=== PATIENT | male | born 1940 | race Caucasian/White ===

== ENCOUNTER 2016-11-29 09:51 | Inpatient (IN) | payer MEDICARE, OTHER ==
[~2016-11-29] VITALS: Ht 170.2 cm; Wt 76.3 kg
[2016-11-29] MEDS ORDERED: SOD CHLORIDE 0.9% 1,000 ML IV STA (09:55)
--- NOTE | 2016-11-29 10:25 | RADRPT ---
PROCEDURE: CT Brain without contrast. CLINICAL INDICATION: Altered mental status. TECHNIQUE: A CT of the brain without contrast was performed utilizing axial sections from the skul l base through the vertex. The patient was scanned without intravenous contrast enhancement. Sagitta l and coronal reformatted images were obtained using the data from the axial images. Total exam DLP is 720.23 mGy-cm. CTDIvol is 44.95 mGy. One or more of the following dose reduction techniques were used: Automated exposure control, adjustment of the mA and/or kV according to patient size, use of iterative reconstruction technique. COMPARISON: None available. FINDINGS: There is normal michele-white matter differentiation. There is enlargement of the ventricles and subarachnoid spaces consistent with atrophy. There is decreased attenuation of the periventricular white matter consistent with microangiopathic ischemic change. There is a large old infarct in the right temporal lobe anteriorly and right parietal lobe involving the basal ganglia with extensive encephalomalacia at this site. There is ex vacuo enlargement of th e temporal horn and right lateral ventricle. There is no evidence of recent infarct. There is no intracranial hemorrhage or space-occupying lesion. There are vascular calcifications consistent with atherosclerosis. There is no skull fracture or lytic lesion. IMPRESSION: 1. Atrophy. 2. Microangiopathic ischemic change. 3. Atherosclerosis. 4. Large old right temporal parietal infarct with extensive encephalomalacia. 5. No new infarct or intracranial hemorrhage. 6. Otherwise unremarkable noncontrast CT scan of the brain. RPTAT: QQ .Jeyson Mcgrath MD, MD Date Time Electronically viewed and signed by .Jeyson Mcgrath MD, on 11/29/2016 10:25 .R/
--- NOTE | 2016-11-29 10:37 | ERD ---
ER Documentation Chief Complaint Chief Complaint aloc,lasted few sec per ems report HPI 76-year-old man brought in by EMS from home for morning confusion. Family member states this morning he had trouble expressing himself and appeared confused and had a complaint of inability to urinate. 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 He has had no complaints of chest pain or shortness of breath, no fevers or chills, no vomiting or diarrhea. EMS state his symptoms gradually improved en route, and stay at scene his blood sugar was within normal limits. ROS All systems reviewed and are negative except as per history of present illness. Medications Home Meds Reported Medications Alprazolam* (Alprazolam*) 0.5 Mg Tablet, 0.5 MG PO DAILY Y for ANXIETY, TAB 11/29/16 Benazepril Hcl* (Benazepril Hcl*) 20 Mg Tablet, 20 MG PO DAILY, #30 TAB 11/29/16 Metformin Hcl* (Metformin Hcl*) 500 Mg Tablet, 500 MG PO WITH BREAKFAST DINNE, # 60 TAB 11/29/16 Glipizide* (Glipizide*) 5 Mg Tablet, 5 MG PO AC BREAKFAST DINNER, TAB 11/29/16 Ibuprofen* (Ibuprofen*) 600 Mg Tablet, 600 MG PO BID Y for PAIN, TAB 11/29/16 Paroxetine Hcl* (Paroxetine*) 20 Mg Tablet, 20 MG PO DAILY, TAB 11/29/16 Doxazosin Mesylate* (Doxazosin Mesylate*) 4 Mg Tablet, 4 MG PO HS, TAB 11/29/16 Simvastatin* (Zocor*) 20 Mg Tablet, 20 MG PO QHS, #30 TAB 11/29/16 Aspirin* (Aspirin* EC) 81 Mg Tablet.dr, 81 MG PO DAILY, TAB 11/29/16 Furosemide* (Furosemide*) 40 Mg Tablet, 40 MG PO DAILY, TAB 11/29/16 Thiamine* (Thiamine*) 100 Mg Tablet, 100 MG PO DAILY, TAB 11/29/16 Metoprolol Succinate* (Toprol XL*) 50 Mg Tab.er.24h, 50 MG PO DAILY, #30 TAB 11/29/16 Amiodarone Hcl* (Amiodarone Hcl*) 200 Mg Tablet, 200 MG PO DAILY, #30 TAB 11/29/16 Omeprazole* (Omeprazole*) 20 Mg Capsule.dr, 20 MG PO DAILY, #30 CAP 11/29/16 Discontinued Reported Medications Benazepril Hcl* (Benazepril Hcl*) 10 Mg Tablet, 10 MG PO DAILY, #30 TAB 11/29/16 Allergies Allergies: Coded Allergies: No Known Allergy (Unverified , 11/29/16) PMhx/Soc 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 No submandibular induration, and no pharyngeal erythema NEURO: Alert and oriented 2, facial asymmetry with left facial deficit and left upper and lower extremity paresis consistent with his old stroke, pupils equal round reactive to light, no expressive dysarthria noted, able to answer all my questions, patient is able to read without difficulty CARDIAC: Regular rate and rhythm, no murmurs rubs or gallops LUNGS: Clear bilaterally no wheezing crackles or stridor ABDOMEN: Soft nontender, no guarding, no rigidity, no rebound, no psoas sign no obturator sign. Normoactive bowel sounds SKIN: Warm and dry to touch, no abrasions, contusions, or hematomas, no lacerations, no ecchymosis, no target lesions, and without ulcers EXTREMITIES: No clubbing cyanosis or edema, calves are bilaterally symmetrical, no Homans sign, no popliteal cord sign. Distal pulses equal and bilateral PSYCH: Normal affect without agitation or irritability Result Diagram: 11/29/16 1008 11/29/16 1008 Results 24 hrs Laboratory Tests Test 11/29/16 10:08 11/29/16 10:54 White Blood Count 8.610^3/ul Red Blood Count 4.0810^6/ul Hemoglobin 12.2g/dl Hematocrit 36.1% Mean Corpuscular Volume 88.5fl Mean Corpuscular Hemoglobin 29.9pg Mean Corpuscular Hemoglobin Concent 33.8g/dl Red Cell Distribution Width 14.1% Platelet Count 46344^3/UL Mean Platelet Volume 10.5fl Neutrophils % 82.6% Lymphocytes % 10.2% Monocytes % 5.4% Eosinophils % 0.9% Basophils % 0.2% Nucleated Red Blood Cells % 0.0/100WBC Neutrophils # 7.110^3/ul Lymphocytes # 0.910^3/ul Monocytes # 0.510^3/ul Eosinophils # 0.110^3/ul Basophils # 0.010^3/ul Nucleated Red Blood Cells # 0.010^3/ul Sodium Level 140mmol/L Potassium Level 4.8mmol/L Chloride Level 105mmol/L Carbon Dioxide Level 19mmol/L Anion Gap 21 Blood Urea Nitrogen 125mg/dl Creatinine 5.74mg/dl Glucose Level mg/dl Calcium Level 9.2mg/dl Total Bilirubin 0.0mg/dl Direct Bilirubin 0.00mg/dl Indirect Bilirubin 0.0mg/dl Aspartate Amino Transf (AST/SGOT) 26IU/L Alanine Aminotransferase (ALT/SGPT) 59IU/L Alkaline Phosphatase 73IU/L Troponin I < 0.012ng/ml Total Protein 7.8g/dl Albumin 3.8g/dl Globulin 4.00g/dl Albumin/Globulin Ratio 0.95 Lipase 156U/L Bedside Glucose 33mg/dL Current Medications Medications (Trade) Dose Ordered Sig/Jacob Route PRN Reason Start Time Stop Time Status Last Admin Dose Admin Sodium Chloride (NS) 1,000 ml @ 1,000 mls/hr Q1H STAT IV 11/29/16 09:55 11/29/16 10:54 DC 11/29/16 10:43 Dextrose (D50w Syringe) 50 ml STK-MED ONCE .ROUTE 11/29/16 10:54 11/29/16 10:55 DC Dextrose (D50w Syringe) 50 ml ONCE STAT IV 11/29/16 11:15 11/29/16 11:17 DC 11/29/16 10:55 Procedures/MDM IV line was established patient was placed on monitoring coordinator rhythm strip revealed a sinus bradycardia at about 60 bpm with upright P and T waves. Patient was afebrile. EKG performed, read by me: 63 bpm, normal sinus rhythm, normal axis, no acute ST segment changes, narrow QRS complex, with good R-wave progression in precordial leads. CT scan of the brain was performed revealing chronic right parietal encephalomalacia consistent with chronic hemorrhagic infarct, no acute bleed mass or shift noted. Please refer to radiologist dictation for full report. Chest X-ray 1V Interpreted by me: Soft Tissue: No acute abnormalities Bones: No acute abnormalities Mediastinum/Cardiac Silhouette/Lungs: Atelectatic changes bilaterally traits. I administered 1 L normal saline intravenously for dehydration, blood sugar was rechecked and was low, I ordered juice p.o. and dextrose 25 g IV 1. Patient's mental status remains at baseline. CBC is normal, electrolytes revealed dehydration and kidney injury with a BUN/ creatinine of 125/5.7, liver function tests normal, troponin negative. Urine analysis was also been ordered results are pending I will follow-up, if positive he will be treated with IV antibiotics. Patient is not a TPA candidate given his history of hemorrhagic stroke, although he was treated here with low-dose aspirin therapy for neuro protective measures, although I suspect his symptoms were due to a.m. hypoglycemia. Daughter who was later at the bedside state he did not have much to eat last night. Patient admitted to telemetry setting. Departure Diagnosis: Primary Impression: Acute metabolic encephalopathy due to hypoglycemia Additional Impressions: Dehydration Acute renal failure Acute renal failure type: unspecified Qualified Code: N17.9 - Acute renal failure, unspecified acute renal failure type Condition: VIRY Raman MD Nov 29, 2016 10:37
--- NOTE | 2016-11-29 10:41 | RADRPT ---
PROCEDURE: XR Chest. CLINICAL INDICATION: Abdominal pain. TECHNIQUE: Single frontal view. COMPARISON: None. FINDINGS: The lungs are clear. The heart size is normal. There is calcification in the aorta consistent with atherosclerosis. There is no pleural effusion. There is no pneumothorax. Surgical clips are present in the right upper quadrant of the abdomen. IMPRESSION: 1. Atherosclerosis. 2. Clear lungs. 3. Prior right upper quadrant abdomen surgery. RPTAT: QQ .Jeyson Mcgrath MD, MD Date Time Electronically viewed and signed by .Jeyson Mcgrath MD, MD on 11/29/2016 10:41 .R/
[2016-11-29 10:47] LABS: ALANINE AMINOTRANSFERASE 59 IU/L (13-69); ALBUMIN 3.8 g/dl (3.3-4.9); ALBUMIN/GLOBULIN RATIO 0.95; ALKALINE PHOSPHATASE 73 IU/L (42-121); ANION GAP 21 (8-16); ASPARTATE AMINO TRANSFERASE 26 IU/L (15-46); CALCIUM 9.2 mg/dl (8.4-10.2); CARBON DIOXIDE 19 mmol/L (21-31); CHLORIDE 105 mmol/L (97-110); CREATININE 5.74 mg/dl (0.61-1.24); POTASSIUM 4.8 mmol/L (3.5-5.1); SODIUM 140 mmol/L (135-144); TOTAL PROTEIN 7.8 g/dl (6.1-8.1)
[2016-11-29 10:48] LABS: BASOPHILS % 0.2 % (0.0-2.0); EOSINOPHILS # 0.1 10^3/ul (0.0-0.5); EOSINOPHILS % 0.9 % (0.0-7.0); HEMATOCRIT 36.1 % (42.0-52.0); HEMOGLOBIN 12.2 g/dl (14.0-18.0); LYMPHOCYTES # 0.9 10^3/ul (0.8-2.9); LYMPHOCYTES % 10.2 % (15.0-51.0); MEAN CORPUSCULAR HEMOGLOBIN 29.9 pg (29.0-33.0); MEAN CORPUSCULAR HGB CONC 33.8 g/dl (32.0-37.0); MEAN CORPUSCULAR VOLUME 88.5 fl (82.0-101.0); MEAN PLATELET VOLUME 10.5 fl (7.4-10.4); MONOCYTE # 0.5 10^3/ul (0.3-0.9); MONOCYTES % 5.4 % (0.0-11.0); NEUTROPHIL # 7.1 10^3/ul (1.6-7.5); NEUTROPHILS % 82.6 % (39.0-77.0); PLATELET COUNT 317 10^3/UL (140-415); RED BLOOD COUNT 4.08 10^6/ul (4.70-6.10); RED CELL DISTRIBUTION WIDTH 14.1 % (11.5-14.5); WHITE BLOOD COUNT 8.6 10^3/ul (4.8-10.8)
[2016-11-29] MEDS ORDERED: DEXTROSE 50% 50 ML SYRINGE ONE (10:54)
[2016-11-29 10:58] LABS: BLOOD UREA NITROGEN 125 mg/dl (7-20)
[2016-11-29] MEDS ORDERED: OMEP20CA16 PO (11:02)
[2016-11-29] MEDS ORDERED: AMIO200T2 PO (11:03)
[2016-11-29] MEDS ORDERED: FURO40TA4 PO (11:04)
[2016-11-29] MEDS ORDERED: METO-319 PO (11:04)
[2016-11-29] MEDS ORDERED: THIA100T10 PO (11:04)
[2016-11-29] MEDS ORDERED: SIMV20TA PO (11:05)
[2016-11-29] MEDS ORDERED: ASPI-664 PO (11:05)
[2016-11-29 11:06] LABS: TROPONIN-I < 0.012 ng/ml (0.00-0.12)
[2016-11-29] MEDS ORDERED: DOXA4TAB3 PO (11:06)
[2016-11-29] MEDS ORDERED: PARO-37 PO (11:06)
[2016-11-29] MEDS ORDERED: BENA10TA48 PO (11:06)
[2016-11-29] MEDS ORDERED: GLIP5TAB13 PO (11:07)
[2016-11-29] MEDS ORDERED: IBUP-1542 PO (11:07)
[2016-11-29] MEDS ORDERED: METF500T4 PO (11:08)
[2016-11-29] MEDS ORDERED: BENA20TA48 PO (11:11)
[2016-11-29] MEDS ORDERED: ALPR0.5T6 PO (11:12)
[2016-11-29] MEDS ORDERED: DEXTROSE 50% 50 ML SYRINGE IV STA (11:15)
[2016-11-29] MEDS ORDERED: ASPIRIN 81 MG TAB PO ONE (12:00)
[2016-11-29 12:31] LABS: ADD UMIC YES; UR ASCORBIC ACID NEGATIVE (NEGATIVE); UR BACTERIA FEW /HPF (NONE SEEN); UR BILIRUBIN (Dip) NEGATIVE (NEGATIVE); UR BLOOD (Dip) 1+ mg/dL (NEGATIVE); UR CLARITY SLIGHTLY CLOUDY (CLEAR); UR COLOR YELLOW (YELLOW); UR GLUCOSE (Dip) NEGATIVE (NEGATIVE); UR KETONES (Dip) NEGATIVE (NEGATIVE); UR LEUKOCYTE ESTERASE (Dip) 3+ Leu/ul (NEGATIVE); UR MUCUS FEW /HPF (NONE SEEN); UR NITRITE (Dip) NEGATIVE (NEGATIVE); UR RBC 3 /HPF (0-5); UR SPECIFIC GRAVITY (Dip) 1.016 (1.003-1.030); UR TOTAL PROTEIN (Dip) 1+ mg/dl (NEGATIVE); UR UROBILINOGEN (Dip) NEGATIVE (NEGATIVE)
[2016-11-29] MEDS ORDERED: ACETAMINOPHEN 325 MG TAB PO PRN (13:00)
[2016-11-29] MEDS ORDERED: ONDANSETRON 4 MG TAB PO PRN (13:00)
[2016-11-29] MEDS ORDERED: NACL 0.9% 3 ML SYG IV SCH (13:00)
--- NOTE | 2016-11-29 13:26 | HP ---
Date/Time of Note Date/Time of Note DATE: 11/29/16 TIME: 13:18 Assessment/Plan VTE Prophylaxis VTE Prophylaxis Intervention: SCD's Lines/Catheters Urinary Cath still in place: Yes Reason Cath still needed: urinary retention Assessment/Plan Assessment/Plan 76 yo M brought in for AMS, found to have acute metabolic encephalopathy from hypoglycemia, now resolved, as well as CHRISTINE 2/2 AUR requiring plascencia placement PLAN #hypoglycemia: likely from CHRISTINE/decreased clearance of home meds -hold metformin and SFU #CHRISTINE: postrenal most likely given AUR. -check VAUGHN -cont plascencia -max out dose of home doxazosin -check urine lytes -check urine culture -no acei/arb/nsaids #h/o CVA: cont home BP meds and statin possibly dc in AM pending Cr HPI/ROS Admit Date/Time Admit Date/Time Hx of Present Illness CC he wasn't himself but now he's better HPI 76 yo M with pmhx CVA, DM2, no CKD brought in by family for seeming unwell this AM. Pt found to be hypoglycemic and with AUR. Plascencia placed in the ER. Family reports pt has been eating and drinking normally over the past few days. Last time pt had a plascencia was when he was hospitalized for his stroke. 10pROS as per HPI PMH/Family/Social Social History lives in the community with his family Smoking Status: Former smoker Exam/Review of Systems Vital Signs Vitals Vital Signs Date Time Temp Pulse Resp B/P Pulse Ox O2 Delivery O2 Flow Rate FiO2 11/29/16 10:01 97.8 69 18 121/69 99 Exam Exam nad, sitting up in bed EOMI MMM no mrg lungs clear abd soft no rashes plascencia in place draining yellow urine labs reviewed, Cr 6s. no previous Cr on file Labs Result Diagram: 11/29/16 1008 11/29/16 1008 ANDREA BECKER MD Nov 29, 2016 13:26
[2016-11-29] MEDS ORDERED: DEXTROSE 5%-0.9% NACL 1,000 ML IV SCH ×2 (13:30)
--- NOTE | 2016-11-29 14:07 | RADRPT ---
PROCEDURE: Renal US. CLINICAL INDICATION: Acute kidney injury TECHNIQUE: Multiple sonographic images of the kidneys were obtained. The images were reviewed on a PACS workstation. COMPARISON: No prior studies are available for comparison. FINDINGS: The kidneys are well visualized. The right kidney measures 10.4 cm. The left kidney measures 10.6 cm .. There are nonobstructing intrarenal calculi in the central mid left kidney measuring 5 and 7 mm r espectively. The bladder is decompressed with a Ugarte catheter. There is a small amount of debris se en within the urinary bladder. IMPRESSION: 1. No evidence of hydronephrosis. 2. Nonobstructing intrarenal calculi in the central mid left kidney measuring 5 and 7 mm respective ly. 3. The bladder is decompressed with a Ugarte catheter and contains a small amount of debris. RPTAT:AAJJ Physician Tiff Date Time Electronically viewed and signed by Physician Tiff on 11/29/2016 14:07 PANFILO/
[2016-11-29] MEDS ORDERED: GLUCOSE GEL 15 GRAM TUBE PO PRN ×2 (15:00)
[2016-11-29] MEDS ORDERED: GLUCAGON 1 MG INJ IM PRN (15:00)
[2016-11-29] MEDS ORDERED: GLUCOSE GEL 15 GRAM TUBE BUCCAL PRN (15:00)
[2016-11-29] MEDS ORDERED: DEXTROSE 50% 50 ML SYRINGE IV PRN ×2 (15:00)
[2016-11-29] MEDS: INSULIN ASPART [NOVOLOG] 3 ML PEN SC SCH ×2 (18:00→20:22)
[2016-11-29 18:17] VITALS: PULSE 99
[2016-11-29 18:20] VITALS: BP 150/96; RESP 18
[2016-11-29 19:57] VITALS: BP 146/61; RESP 20
[2016-11-29 20:10] VITALS: PULSE 96
[2016-11-29] MEDS: ATORVASTATIN 10 MG TAB PO SCH (20:24)
[2016-11-29] MEDS: AMIODARONE 200 MG TAB PO SCH (20:25)
[2016-11-29] MEDS: METOPROLOL (XL) 50 MG TAB PO SCH (20:25)
[2016-11-29 20:53] VITALS: Ht 170.2 cm; Wt 76.3 kg
[2016-11-29] MEDS ORDERED: DOXAZOSIN 4 MG TAB PO SCH (21:00)
[2016-11-29] MEDS: PAROXETINE 20 MG TAB PO SCH (23:30)
[2016-11-29] MEDS: THIAMINE 100 MG TAB PO SCH (23:30)
[2016-11-29] MEDS: DOXAZOSIN 4 MG TAB PO SCH (23:41)
[2016-11-29 23:48] VITALS: BP 114/58; RESP 19
[2016-11-30] VITALS (13 sets, daily range): BP systolic 64–107; BP diastolic 41–62; PULSE 70–97; RESP 18–21
[2016-11-30] MEDS: ACCU-CHEK XX SCH (02:55)
[2016-11-30] MEDS: INSULIN ASPART [NOVOLOG] 3 ML PEN SC SCH ×4 (07:43→22:36)
[2016-11-30 08:33] LABS: BASOPHILS % 0.4 % (0.0-2.0); EOSINOPHILS # 0.2 10^3/ul (0.0-0.5); EOSINOPHILS % 2.8 % (0.0-7.0); HEMATOCRIT 33.4 % (42.0-52.0); HEMOGLOBIN 11.2 g/dl (14.0-18.0); LYMPHOCYTES # 1.3 10^3/ul (0.8-2.9); LYMPHOCYTES % 17.3 % (15.0-51.0); MEAN CORPUSCULAR HEMOGLOBIN 29.2 pg (29.0-33.0); MEAN CORPUSCULAR HGB CONC 33.5 g/dl (32.0-37.0); MEAN CORPUSCULAR VOLUME 87.2 fl (82.0-101.0); MEAN PLATELET VOLUME 10.5 fl (7.4-10.4); MONOCYTE # 0.7 10^3/ul (0.3-0.9); MONOCYTES % 9.2 % (0.0-11.0); NEUTROPHIL # 5.2 10^3/ul (1.6-7.5); NEUTROPHILS % 69.5 % (39.0-77.0); PLATELET COUNT 312 10^3/UL (140-415); RED BLOOD COUNT 3.83 10^6/ul (4.70-6.10); WHITE BLOOD COUNT 7.4 10^3/ul (4.8-10.8)
[2016-11-30] MEDS: THIAMINE 100 MG TAB PO SCH (08:48)
[2016-11-30] MEDS: PAROXETINE 20 MG TAB PO SCH (08:57)
[2016-11-30] MEDS: ASPIRIN (EC) 81 MG TAB PO SCH (08:57)
[2016-11-30] MEDS: ENOXAPARIN 30 MG/0.3 ML SYG SC SCH (08:58)
[2016-11-30] MEDS: METOPROLOL (XL) 50 MG TAB PO SCH (09:00)
[2016-11-30 09:01] LABS: CALCIUM 9.1 mg/dl (8.4-10.2); CREATININE 3.56 mg/dl (0.61-1.24); POTASSIUM 4.6 mmol/L (3.5-5.1)
[2016-11-30] MEDS ORDERED: SOD CHLORIDE 0.9% 1,000 ML IV ONE (09:30)
[2016-11-30] MEDS: AMIODARONE 200 MG TAB PO SCH (11:37)
--- NOTE | 2016-11-30 14:07 | PN ---
Date/Time of Note Date/Time of Note DATE: 11/30/16 TIME: 14:03 Assessment/Plan VTE Prophylaxis VTE Prophylaxis Intervention: SCD's Lines/Catheters IV Catheter Type (from Nrsg): Saline Lock Urinary Cath still in place: Yes Reason Cath still needed: urinary retention Assessment/Plan Assessment/Plan 76 yo M brought in for AMS, found to have acute metabolic encephalopathy from hypoglycemia, as well as CHRISTINE 2/2 AUR requiring plascencia placement PLAN #hypoglycemia: RESOLVED -likely from CHRISTINE/decreased clearance of home meds -hold metformin and SFU #CHRISTINE: postrenal most likely given AUR. -cont plascencia -maxed out dose of home doxazosin -VAUGHN with just non obstructing kidney stone -urine culture ng thus far -no acei/arb/nsaids -judicious IVFs as unclear if pt has underlying CHF hx, appears to be on CHF regimen based on home meds #h/o CVA: cont statin. hold BP meds given hypotension this AM awaiting further improvement in Cr Exam/Review of Systems Vital Signs Vitals Vital Signs Date Time Temp Pulse Resp B/P Pulse Ox O2 Delivery O2 Flow Rate FiO2 11/30/16 12:31 98.7 82 18 96/54 97 11/29/16 16:23 Room Air Intake and Output 11/29/16 11/29/16 11/30/16 15:00 23:00 07:00 Intake Total 160 ml 120 ml Output Total 3000 ml Balance 160 ml -2880 ml Results Result Diagram: 11/30/16 0809 11/30/16 0809 Results 24 hrs Laboratory Tests Test 11/29/16 17:07 11/29/16 18:41 11/29/16 20:22 11/30/16 02:55 Bedside Glucose 100 72 101 98 Test 11/30/16 07:42 11/30/16 08:09 11/30/16 11:31 Bedside Glucose 137 209 White Blood Count 7.4 Red Blood Count 3.83 L Hemoglobin 11.2 L Hematocrit 33.4 L Mean Corpuscular Volume 87.2 Mean Corpuscular Hemoglobin 29.2 Mean Corpuscular Hemoglobin Concent 33.5 Red Cell Distribution Width 14.0 Platelet Count 312 Mean Platelet Volume 10.5 H Neutrophils % 69.5 Lymphocytes % 17.3 Monocytes % 9.2 Eosinophils % 2.8 Basophils % 0.4 Nucleated Red Blood Cells % 0.0 Neutrophils # 5.2 Lymphocytes # 1.3 Monocytes # 0.7 Eosinophils # 0.2 Basophils # 0.0 Nucleated Red Blood Cells # 0.0 Sodium Level 142 Potassium Level 4.6 Chloride Level 113 H Carbon Dioxide Level 18 L Anion Gap 16 Blood Urea Nitrogen 99 H Creatinine 3.56 #H Glucose Level 124 Calcium Level 9.1 Medications Medications Current Medications Amiodarone HCl (Cordarone) 200 mg DAILY PO Last administered on 11/29/16 20: 25; Admin Dose 200 MG; Start 11/29/16 at 17:30 Aspirin (Halfprin) 81 mg DAILY PO Last administered on 11/30/16 08:57; Admin Dose 81 MG; Start 11/30/16 at 09:00 Paroxetine HCl (Paxil) 20 mg DAILY PO Last administered on 11/30/16 08:57; Admin Dose 20 MG; Start 11/29/16 at 17:30 Thiamine HCl (Vitamin B1) 100 mg DAILY PO Last administered on 11/30/16 08:48 ; Admin Dose 100 MG; Start 11/29/16 at 17:30 Atorvastatin Calcium (Lipitor) 10 mg DAILY@21 PO Last administered on 20:24; Admin Dose 10 MG; Start 11/29/16 at 21:00 Ondansetron HCl (Zofran Tab) 4 mg Q6H PRN PO NAUSEA AND/OR VOMITING; Start at 13:00 Acetaminophen (Tylenol Tab) 650 mg Q6H PRN PO PAIN LEVEL 1-3 OR FEVER Last administered on 11/29/16 23:34; Admin Dose 650 MG; Start 11/29/16 at 13:00 Acetaminophen/ Hydrocodone Bitart ([place] (5/325)) 1 tab Q6H PRN PO MODERATE PAIN LEVEL 4-6; Start 11/29/16 at 13:00 Morphine Sulfate (morphine) 2 mg Q4H PRN IV SEVERE PAIN LEVEL 7-10; Start at 13:00 Enoxaparin Sodium (Lovenox) 30 mg DAILY SC Last administered on 11/30/16 08: 58; Admin Dose 30 MG; Start 11/30/16 at 09:00 Diagnostic Test (Pha) (Accu-Chek) 1 ea 02 XX Last administered on 11/30/16 02 :55; Admin Dose 1 EA; Start 11/30/16 at 02:00 Doxazosin Mesylate (Cardura) 8 mg HS PO Last administered on 11/29/16t 23:41; Admin Dose 8 MG; Start 11/29/16 at 21:00 Miscellaneous Information 1 ea NOTE XX ; Start 11/29/16 at 15:00 Glucose (Glutose) 15 gm Q15M PRN PO DECREASED GLUCOSE; Start 11/29/16 at 15:00 Glucose (Glutose) 22.5 gm Q15M PRN PO DECREASED GLUCOSE; Start 11/29/16 at 15: 00 Dextrose (D50w Syringe) 25 ml Q15M PRN IV DECREASED GLUCOSE; Start 11/29/16 at 15:00 Dextrose (D50w Syringe) 50 ml Q15M PRN IV DECREASED GLUCOSE; Start 11/29/16 at 15:00 Glucagon (Glucagen) 1 mg Q15M PRN IM DECREASED GLUCOSE; Start 11/29/16 at 15: 00 Glucose (Glutose) 15 gm Q15M PRN BUCCAL DECREASED GLUCOSE; Start 11/29/16 at 15:00 ANDREA BECKER MD Nov 30, 2016 14:07
[2016-11-30] MEDS ORDERED: SOD CHLORIDE 0.9% 1,000 ML IV SCH (14:30)
--- NOTE | 2016-11-30 16:41 | RADRPT ---
Vent Rate: 73 bpm RR Interval: 0 msec AL Interval: 192 msec QRS Duration: 86 msec QT Interval: 412 msec QTC Interval: 453 msec P-R-T [place]: 40 - -47 - 53 degrees Normal sinus rhythm with sinus arrhythmia Left axis deviation Abnormal ECG Electronically Signed By: Klaus Johnson [id number]
[2016-11-30] MEDS: ATORVASTATIN 10 MG TAB PO SCH (22:30)
[2016-11-30] MEDS: DOXAZOSIN 4 MG TAB PO SCH (22:37)
[2016-12-01] VITALS (11 sets, daily range): BP systolic 102–148; BP diastolic 60–73; PULSE 75–103; RESP 20
[2016-12-01] MEDS: ACCU-CHEK XX SCH (02:25)
[2016-12-01] MEDS: THIAMINE 100 MG TAB PO SCH (08:51)
[2016-12-01] MEDS: ASPIRIN (EC) 81 MG TAB PO SCH (08:51)
[2016-12-01] MEDS: AMIODARONE 200 MG TAB PO SCH (08:52)
[2016-12-01] MEDS: PAROXETINE 20 MG TAB PO SCH (08:52)
[2016-12-01] MEDS: INSULIN ASPART [NOVOLOG] 3 ML PEN SC SCH ×4 (08:53→21:04)
[2016-12-01] MEDS: ENOXAPARIN 30 MG/0.3 ML SYG SC SCH (08:54)
[2016-12-01] MEDS: morphine 2 MG INJ IV PRN (09:04)
[2016-12-01 09:16] LABS: CALCIUM 9.1 mg/dl (8.4-10.2); CREATININE 2.23 mg/dl (0.61-1.24); MAGNESIUM 1.3 mg/dl (1.7-2.5); POTASSIUM 4.2 mmol/L (3.5-5.1)
[2016-12-01] MEDS ORDERED: SOD CHLORIDE 0.45% 1,000 ML IV SCH (13:00)
[2016-12-01] MEDS ORDERED: MAGNESIUM SULFATE 2 GM/50 ML 50 ML IVPB SCH (13:00)
[2016-12-01] MEDS ORDERED: SOD CHLORIDE 0.9% 1,000 ML IV SCH (13:00)
--- NOTE | 2016-12-01 15:23 | PN ---
Date/Time of Note Date/Time of Note DATE: 12/01/16 TIME: 15:20 Assessment/Plan VTE Prophylaxis VTE Prophylaxis Intervention: SCD's Lines/Catheters IV Catheter Type (from Nrsg): Peripheral IV Urinary Cath still in place: Yes Reason Cath still needed: urinary retention Assessment/Plan Chief Complaint/Hosp Course Assessment/Plan: 76 yo M brought in for AMS, found to have acute metabolic encephalopathy from hypoglycemia, as well as CHRISTINE 2/2 AUR requiring plascencia placement 1. hypoglycemia: RESOLVED - likely from CHRISTINE/decreased clearance of home meds Continue to hold metformin and SFU 2 CHRISTINE: postrenal most likely given AUR.-VAUGHN with just non obstructing kidney stone -cont plascencia -maxed out dose of home doxazosin An antibiotic for simple UTI as culture is negative -no acei/arb/nsaids -judicious IVFs as unclear if pt has underlying CHF hx, appears to be on CHF regimen based on home meds 3. h/o CVA: cont statin-monitor for now Problems: Subjective 24 Hr Interval Summary Free Text/Dictation Patient asking when he can go home. No acute events overnight. Exam/Review of Systems Vital Signs Vitals Vital Signs Date Time Temp Pulse Resp B/P Pulse Ox O2 Delivery O2 Flow Rate FiO2 12/01/16 12:00 101 12/01/16 11:57 98.3 20 117/63 95 11/29/16 16:23 Room Air Intake and Output 11/30/16 11/30/16 12/01/16 15:00 23:00 07:00 Intake Total 1920 ml 505 ml Output Total 1000 ml 1900 ml Balance 920 ml -1395 ml Exam nad, lying in bed EOMI MMM no mrg lungs clear abd soft no rashes plascencia in place draining yellow urine Results Result Diagram: 11/30/16 0809 12/01/16 0800 Results 24 hrs Laboratory Tests Test 11/30/16 17:22 11/30/16 22:34 12/01/16 02:24 12/01/16 08:00 Bedside Glucose 185 204 200 Sodium Level 147 H Potassium Level 4.2 Chloride Level 117 H Carbon Dioxide Level 19 L Anion Gap 15 Blood Urea Nitrogen 72 H Creatinine 2.23 #H Glucose Level 153 Calcium Level 9.1 Magnesium Level 1.3 L Test 12/01/16 08:16 12/01/16 12:01 Bedside Glucose 166 208 Medications Medications Current Medications Amiodarone HCl (Cordarone) 200 mg DAILY PO Last administered on 12/01/16 08: 52; Admin Dose 200 MG; Start 11/29/16 at 17:30 Aspirin (Halfprin) 81 mg DAILY PO Last administered on 12/01/16 08:51; Admin Dose 81 MG; Start 11/30/16 at 09:00 Paroxetine HCl (Paxil) 20 mg DAILY PO Last administered on 12/01/16 08:52; Admin Dose 20 MG; Start 11/29/16 at 17:30 Thiamine HCl (Vitamin B1) 100 mg DAILY PO Last administered on 12/01/16 08:51 ; Admin Dose 100 MG; Start 11/29/16 at 17:30 Atorvastatin Calcium (Lipitor) 10 mg DAILY@21 PO Last administered on 22:30; Admin Dose 10 MG; Start 11/29/16 at 21:00 Ondansetron HCl (Zofran Tab) 4 mg Q6H PRN PO NAUSEA AND/OR VOMITING Last administered on 11/30/16 17:30; Admin Dose 4 MG; Start 11/29/16 at 13:00 Acetaminophen (Tylenol Tab) 650 mg Q6H PRN PO PAIN LEVEL 1-3 OR FEVER Last administered on 11/29/16 23:34; Admin Dose 650 MG; Start 11/29/16 at 13:00 Acetaminophen/ Hydrocodone Bitart ([place] (5/325)) 1 tab Q6H PRN PO MODERATE PAIN LEVEL 4-6; Start 11/29/16 at 13:00 Morphine Sulfate (morphine) 2 mg Q4H PRN IV SEVERE PAIN LEVEL 7-10 Last administered on 12/01/16 09:04; Admin Dose 2 MG; Start 11/29/16 at 13:00 Diagnostic Test (Pha) (Accu-Chek) 1 ea 02 XX Last administered on 12/01/16 02 :25; Admin Dose 1 EA; Start 11/30/16 at 02:00 Doxazosin Mesylate (Cardura) 8 mg HS PO Last administered on 11/29/16 23:41; Admin Dose 8 MG; Start 11/29/16 at 21:00 Miscellaneous Information 1 ea NOTE XX ; Start 11/29/16 at 15:00 Glucose (Glutose) 15 gm Q15M PRN PO DECREASED GLUCOSE; Start 11/29/16 at 15:00 Glucose (Glutose) 22.5 gm Q15M PRN PO DECREASED GLUCOSE; Start 11/29/16 at 15: 00 Dextrose (D50w Syringe) 25 ml Q15M PRN IV DECREASED GLUCOSE; Start 11/29/16 at 15:00 Dextrose (D50w Syringe) 50 ml Q15M PRN IV DECREASED GLUCOSE; Start 11/29/16 at 15:00 Glucagon (Glucagen) 1 mg Q15M PRN IM DECREASED GLUCOSE; Start 11/29/16 at 15: 00 Glucose 15 gm 15 gm Q15M PRN BUCCAL DECREASED GLUCOSE; Start 11/29/16 at 15:00 Sodium Chloride (1/2 NS) 1,000 ml @ 125 mls/hr Q8H IV Last administered on t 13:47; Admin Dose 125 MLS/HR; Start 12/01/16 at 13:00 Ciprofloxacin (Cipro) 250 mg BID@06,18 PO ; Start 12/01/16 at 16:00 WALLACE BROWN Dec 01, 2016 15:23
[2016-12-01] MEDS: CIPROFLOXACIN 250 MG TAB PO SCH (17:00)
[2016-12-01] MEDS: ATORVASTATIN 10 MG TAB PO SCH (20:58)
[2016-12-01] MEDS: HYDROCODONE/APAP (5/325) TAB PO PRN (20:59)
[2016-12-01] MEDS: DOXAZOSIN 4 MG TAB PO SCH (21:00)
[2016-12-02] VITALS (10 sets, daily range): BP systolic 89–178; BP diastolic 52–83; PULSE 82–104; RESP 17–20
[2016-12-02] MEDS: ACCU-CHEK XX SCH (02:00)
[2016-12-02] MEDS: CIPROFLOXACIN 250 MG TAB PO SCH (06:30)
[2016-12-02] MEDS: AMIODARONE 200 MG TAB PO SCH (07:52)
[2016-12-02] MEDS: PAROXETINE 20 MG TAB PO SCH (07:52)
[2016-12-02] MEDS: morphine 2 MG INJ IV PRN (07:52)
[2016-12-02] MEDS: THIAMINE 100 MG TAB PO SCH (07:53)
[2016-12-02] MEDS: ASPIRIN (EC) 81 MG TAB PO SCH (07:53)
[2016-12-02] MEDS: INSULIN ASPART [NOVOLOG] 3 ML PEN SC SCH ×2 (07:59→11:43)
[2016-12-02] MEDS: HYDROCODONE/APAP (5/325) TAB PO PRN (11:53)
--- NOTE | 2016-12-02 13:55 | PDOCDIS ---
Discharge Instructions CONDITION Patient Condition: Stable HOME CARE INSTRUCTIONS: Special Diet: dx aloc, hypoglycemia ACTIVITY: Activity Restrictions: Slowly Increase Activity FOLLOW UP/APPOINTMENTS Follow-up Plan Please take your medications as prescribed, please follow-up with your regular doctor in the clinic in the next 1 week. WALLACE BROWN Dec 02, 2016 13:55
[2016-12-02] MEDS ORDERED: CIPR-193 PO (13:57)
--- NOTE | 2016-12-02 16:22 | DS ---
DATE OF ADMISSION: 11/29/2016 DATE OF DISCHARGE: 12/02/2016 HISTORY OF PRESENT ILLNESS: This is a 76-year-old male, originally admitted on November 29, 2016, being discharged home on December 02, 2016. Patient came in with altered mental status. He was found to have acute metabolic encephalopathy, likely from a combination of hypoglycemia and also from acute renal insufficiency. So he was admitted. He was a given cautious IV fluids. His creatinine levels improved. He was also given magnesium repletion. His hypoglycemia symptoms resolved as we held his home metformin medications. As his kidney function got better, his sugar stabilized. Eventually, he was back at his baseline status. He does have a history of prior stroke, so he is not able to ambulate, but at his baseline status, his vital signs are stable. He was tolerating p.o. diet. He will be discharged home today in improved condition. He was also found with a simple UTI. DISCHARGE MEDICATIONS: He will be sent with the following medications: 1. Cipro 250 mg p.o. b.i.d. for 5 days. 2. Alprazolam 0.5 mg p.o. daily p.r.n. 3. Amiodarone 200 mg daily. 4. Aspirin 81 mg daily. 5. Benazepril 20 mg daily. 6. Doxazosin 4 mg at bedtime. 7. Furosemide 40 mg daily. 8. Glipizide 5 mg twice a day. 9. Ibuprofen 600 mg b.i.d. p.r.n. 10. Metformin 500 mg b.i.d. 11. Toprol-XL 50 mg daily. 12. Omeprazole 20 mg daily. 13. Paroxetine 20 mg daily. 14. Zocor 20 mg at bedtime. 15. Thiamine 100 mg daily. FOLLOWUP: He will need to follow up with regular doctor in clinic in the next 1 to 2 weeks. FINAL DIAGNOSES: 1. Altered mental status secondary to hypoglycemia and acute renal insufficiency, now both resolving. 2. History of prior stroke. 3. History of type 2 diabetes. 4. [id number] kidney disease. Time to discharge the patient: 45 minutes. Dictated By: Demetrius Rebolledo MD /cassandra/bhaskar /Document#: [id number] [email or web address]
== END 2016-12-02 17:07 | disposition home or self-care (01) | DRG 682 ==
LOC: E/R 09:51 → MS4 11:09
PROVIDERS: ADMIT Internal Medicine; ATTEND Internal Medicine
DX: N17.9 Acute kidney failure, unspecified (principal); G93.41 Metabolic encephalopathy; E11.649 Type 2 diabetes mellitus with hypoglycemia without coma; I69.354 Hemiplegia and hemiparesis following cerebral infarction affecting left non-dominant side; F03.90 Unspecified dementia, unspecified severity, without behavioral disturbance, psychotic disturbance, mood disturbance, and anxiety; N39.0 Urinary tract infection, site not specified; Z74.01 Bed confinement status; Z79.84 Long term (current) use of oral hypoglycemic drugs; Z79.82 Long term (current) use of aspirin; I10 Essential (primary) hypertension; I69.392 Facial weakness following cerebral infarction; E86.0 Dehydration
CPT/HCPCS: 70450; 71010; 76775; 80048; 80053; 81001; 82540; 82962; 83036; 83690; 83735; 84155; 84300; 84484; 85025; 87086; 93005; 96374; J1650; J1815; J2270; J3475; J7030; J7042; P9612